=== PATIENT | male | born 1945 | race Caucasian/White ===

== ENCOUNTER 2019-03-24 06:51 | Day surgery (SDC) ==
[2019-03-24] MEDS: BETADINE OPTH PREP OP PRN ×2 (06:57→07:58)
[2019-03-24] MEDS: TETRACAINE 0.5% UNIT-DOSE OP PRN ×2 (06:57→07:58)
[2019-03-24] MEDS: CYCLOGYL 2% OPTH OP PRN ×3 (06:58→07:08)
[2019-03-24] MEDS ORDERED: LIDOCAINE 1%/PHENYLEPHRINE 1.5% BSS (SURGERY) INTRAOCULA ONE (07:11)
[2019-03-24] MEDS ORDERED: DEX-MOXI-KETOR OPTH INJ 1/0.5/0.4 MG/ML IO ONE (07:11)
[2019-03-24] MEDS ORDERED: ZOFRAN 4 MG/2 ML IVP ONE (07:11)
[2019-03-24] MEDS ORDERED: BSS WITH EPINEPHRINE OP ONE (07:11)
[2019-03-24] MEDS ORDERED: LIDOCAINE 1% 20 ML MDV ID STA (07:11)
[2019-03-24 07:18] VITALS: TEMP 96.9
[2019-03-24] MEDS ORDERED: ZOFRAN 4 MG/2 ML ONE (07:55)
[2019-03-24] MEDS ORDERED: VERSED ONE (07:55)
[2019-03-24] MEDS ORDERED: SUBLIMAZE ONE (07:55)
[2019-03-24 12:15] VITALS: BP 100/47
== END 2019-03-24 09:10 | disposition home or self-care (01) ==
LOC: SURG 06:51
PROVIDERS: ATTEND Ophthalmology
DX: H25.812 Combined forms of age-related cataract, left eye (principal)